=== PATIENT | male | born 1975 | race Caucasian/White ===

== ENCOUNTER 2016-12-21 10:41 | Emergency (ER) | payer MEDICAID, SELFPAY ==
[~2016-12-21] VITALS: Ht 193 cm; Wt 86.1 kg
[2016-12-21 12:19] VITALS: BP 127/69
[2016-12-21] MEDS ORDERED: OXAZ10CA3 PO (13:02)
== END 2016-12-21 13:32 | disposition home or self-care (01) ==
LOC: M ED 12:41
DX: F10.10 Alcohol abuse, uncomplicated (principal); F17.210 Nicotine dependence, cigarettes, uncomplicated

== ENCOUNTER 2018-04-06 12:52 | Emergency (ER) | payer MEDICAID, OTHER, SELFPAY ==
[2018-04-06] MEDS: NS 1,000 ML IV (13:30)
[2018-04-06 13:45] LABS: BASO # 0.1 10^3/uL (0.0-0.2); EOS # 0.2 10^3/uL (0.0-0.50); EOS % 2.7 % (0.0-3.0); HEMATOCRIT 36.5 % (42.0-52.0); HEMOGLOBIN 12.7 g/dl (13.5-17.5); LYMPH # 1.9 10^3/uL (1.5-4.5); LYMPH % 21.2 % (24.0-44.0); MEAN CORPUSCULAR HEMOGLOBIN 34.7 pg (27.0-33.0); MEAN CORPUSCULAR HGB CONC 34.8 g/dl (32.0-36.5); MEAN CORPUSCULAR VOLUME 99.7 fl (80.0-96.0); MONO # 0.9 10^3/uL (0.0-0.8); NEUTROPHILS # 5.7 10^3/uL (1.8-7.7); NEUTROPHILS % 64.1 % (36.0-66.0); PLATELET COUNT, AUTOMATED 272 10^3/uL (150-450); RED BLOOD COUNT 3.66 10^6/uL (4.30-6.10); RED CELL DISTRIBUTION WIDTH 12.4 % (11.5-14.5); WHITE BLOOD COUNT 8.9 10^3/uL (4.0-10.0)
[2018-04-06 14:05] LABS: ANION GAP 5 MEQ/L (8-16); BLOOD UREA NITROGEN 8 MG/DL (7-18); C REACTIVE PROTEIN QUANTITATIV 2.16 MG/DL (0.00-0.30); CALCIUM LEVEL 8.9 MG/DL (8.5-10.1); CARBON DIOXIDE LEVEL 31 MEQ/L (21-32); CHLORIDE LEVEL 103 MEQ/L (98-107); CREATININE FOR GFR 0.64 MG/DL (0.70-1.30); GLOMERULAR FILTRATION RATE > 60.0 (>60); GLUCOSE, FASTING 131 MG/DL (70-100); POTASSIUM SERUM 3.5 MEQ/L (3.5-5.1); SODIUM LEVEL 139 MEQ/L (136-145)
[2018-04-06 14:08] LABS: ERYTHROCYTE SEDIMENTATION RATE 44 mm/hr (0-15)
== END 2018-04-06 15:28 | disposition home or self-care (01) ==
LOC: M ED 12:52
DX: S22.31XA Fracture of one rib, right side, initial encounter for closed fracture (principal); L03.115 Cellulitis of right lower limb; S80.11XA Contusion of right lower leg, initial encounter; M71.21 Synovial cyst of popliteal space [Baker], right knee; Y04.8XXA Assault by other bodily force, initial encounter; Y92.149 Unspecified place in prison as the place of occurrence of the external cause; Y93.9 Activity, unspecified; Y99.9 Unspecified external cause status; Z79.899 Other long term (current) drug therapy
CPT/HCPCS: 71101

== ENCOUNTER 2018-04-08 10:00 | Emergency (ER) | payer MEDICAID, SELFPAY | END 2018-04-08 12:03 | disposition home or self-care (01) | LOC: M ED 10:00 | DX: L03.115 Cellulitis of right lower limb (principal); F10.10 Alcohol abuse, uncomplicated; F17.210 Nicotine dependence, cigarettes, uncomplicated | CPT/HCPCS: 73590 ==

== ENCOUNTER 2018-04-09 11:27 | Inpatient (IN) | payer MEDICAID, OTHER, SELFPAY ==
[2018-04-09] MEDS: THIAMINE 100 MG TAB PO (09:00)
[2018-04-09] MEDS: NS 1,000 ML IV (12:43)
[2018-04-09 12:46] LABS: BASO # 0.1 10^3/uL (0.0-0.2); BASO % 1.2 % (0.0-1.0); EOS # 0.5 10^3/uL (0.0-0.50); EOS % 4.4 % (0.0-3.0); HEMATOCRIT 36.8 % (42.0-52.0); HEMOGLOBIN 12.6 g/dl (13.5-17.5); IMMATURE GRANULOCYTE % 3.1 % (0-3.0); LYMPH # 2.2 10^3/uL (1.5-4.5); LYMPH % 19.4 % (24.0-44.0); MEAN CORPUSCULAR HEMOGLOBIN 34.4 pg (27.0-33.0); MEAN CORPUSCULAR HGB CONC 34.2 g/dl (32.0-36.5); MEAN CORPUSCULAR VOLUME 100.5 fl (80.0-96.0); MONO # 1.3 10^3/uL (0.0-0.8); MONO % 11.7 % (0.0-5.0); NEUTROPHILS # 6.8 10^3/uL (1.8-7.7); NEUTROPHILS % 60.2 % (36.0-66.0); PLATELET COUNT, AUTOMATED 319 10^3/uL (150-450); RED BLOOD COUNT 3.66 10^6/uL (4.30-6.10); RED CELL DISTRIBUTION WIDTH 13.1 % (11.5-14.5); WHITE BLOOD COUNT 11.2 10^3/uL (4.0-10.0)
[2018-04-09 12:59] LABS: KETONE, URINE AUTO RFX TRACE mg/dL (NEGATIVE); LEUKOCYTE ESTERASE UR AUTO RFX NEGATIVE (NEGATIVE); MUCUS, URINE RFX SMALL (NEGATIVE); NITRITE, URINE AUTO RFX NEGATIVE (NEGATIVE); RBC, URINE AUTO RFX 2 /HPF (0-3); SPECIFIC GRAVITY UR AUTO RFX 1.017 (1.002-1.035); SQUAM EPITHELIAL CELL UR AURFX 0 /HPF (0-6); WBC, URINE AUTO RFX 1 /HPF (0-3)
[2018-04-09 13:00] LABS: INR 1.01; PARTIAL THROMBOPLASTIN TIME 31.4 SECONDS (25.4-37.6); PROTHROMBIN TIME 13.4 SECONDS (12.1-14.4)
[2018-04-09 13:15] LABS: ERYTHROCYTE SEDIMENTATION RATE 41 mm/hr (0-15)
[2018-04-09 13:24] LABS: ALBUMIN/GLOBULIN RATIO 0.83 (1.00-1.93); ALKALINE PHOSPHATASE 101 U/L (45-117); ALT/SGPT 159 U/L (12-78); ANION GAP 4 MEQ/L (8-16); AST/SGOT 109 U/L (7-37); BILIRUBIN,DIRECT 0.3 MG/DL (0.0-0.2); BILIRUBIN,TOTAL 0.8 MG/DL (0.2-1.0); BLOOD UREA NITROGEN 4 MG/DL (7-18); C REACTIVE PROTEIN QUANTITATIV 1.16 MG/DL (0.00-0.30); CALCIUM LEVEL 7.8 MG/DL (8.5-10.1); CARBON DIOXIDE LEVEL 32 MEQ/L (21-32); CHLORIDE LEVEL 105 MEQ/L (98-107); CREATININE FOR GFR 0.67 MG/DL (0.70-1.30); GLOMERULAR FILTRATION RATE > 60.0 (>60); GLUCOSE, FASTING 94 MG/DL (70-100); POTASSIUM SERUM 4.5 MEQ/L (3.5-5.1); SODIUM LEVEL 141 MEQ/L (136-145); TOTAL PROTEIN 6.6 GM/DL (6.4-8.2)
[2018-04-09 13:27] LABS: LACTIC ACID SEPSIS PROTOCOL 2.5 MMOL/L (0.4-2.0)
[2018-04-09] MEDS ORDERED: ISOVUE-370 76% 100ML VIAL (Q9967) As Ordered (13:28)
[2018-04-09] MEDS: CEFTAROLINE FOSAMIL 600 MG in D5W MINI-BAG PLUS 50 ML IV (14:51)
[2018-04-09] MEDS ORDERED: LORazepam 2 MG/ML VIAL (J2060) IV (15:45)
[2018-04-09] MEDS ORDERED: BISACODYL 5 MG TAB PO (15:45)
[2018-04-09] MEDS ORDERED: IBUPROFEN 400 MG TAB PO (15:45)
[2018-04-09] MEDS: ENOXAPARIN 40 MG/0.4 ML SYRINGE (J1650) SC (17:02)
[2018-04-09] MEDS: MULTIVITAMINS/MINERALS THERAP 1 TAB PO (17:02)
[2018-04-09] MEDS ORDERED: PILL CRUSHER/CUTTER 1 EACH XX (17:30)
[2018-04-09] MEDS: FOLIC ACID 1 MG TAB PO (19:46)
[2018-04-10] MEDS: CEFTAROLINE FOSAMIL 600 MG in D5W MINI-BAG PLUS 50 ML IV ×2 (02:56→16:05)
[2018-04-10 06:14] LABS: HEMATOCRIT 36.1 % (42.0-52.0); HEMOGLOBIN 12.2 g/dl (13.5-17.5); MEAN CORPUSCULAR HEMOGLOBIN 34.3 pg (27.0-33.0); MEAN CORPUSCULAR HGB CONC 33.8 g/dl (32.0-36.5); MEAN CORPUSCULAR VOLUME 101.4 fl (80.0-96.0); PLATELET COUNT, AUTOMATED 296 10^3/uL (150-450); RED BLOOD COUNT 3.56 10^6/uL (4.30-6.10); RED CELL DISTRIBUTION WIDTH 13.1 % (11.5-14.5); WHITE BLOOD COUNT 10.5 10^3/uL (4.0-10.0)
[2018-04-10 06:44] LABS: ALBUMIN 2.6 GM/DL (3.2-5.2); ALBUMIN/GLOBULIN RATIO 0.72 (1.00-1.93); ALKALINE PHOSPHATASE 92 U/L (45-117); ALT/SGPT 122 U/L (12-78); ANION GAP 4 MEQ/L (8-16); AST/SGOT 65 U/L (7-37); BILIRUBIN,TOTAL 0.5 MG/DL (0.2-1.0); BLOOD UREA NITROGEN 6 MG/DL (7-18); CALCIUM LEVEL 8.2 MG/DL (8.5-10.1); CARBON DIOXIDE LEVEL 31 MEQ/L (21-32); CHLORIDE LEVEL 108 MEQ/L (98-107); CREATININE FOR GFR 0.66 MG/DL (0.70-1.30); GLOMERULAR FILTRATION RATE > 60.0 (>60); GLUCOSE, FASTING 85 MG/DL (70-100); SODIUM LEVEL 143 MEQ/L (136-145); TOTAL PROTEIN 6.2 GM/DL (6.4-8.2)
[2018-04-10] MEDS: THIAMINE 100 MG TAB PO (09:21)
[2018-04-10] MEDS: MULTIVITAMINS/MINERALS THERAP 1 TAB PO (09:21)
[2018-04-10] MEDS: INFLUENZA QUADRIVALENT PF VACCINE 0.5ML SYRINGE (90686) IM (09:21)
[2018-04-10] MEDS: FOLIC ACID 1 MG TAB PO (09:21)
[2018-04-10] MEDS: ENOXAPARIN 40 MG/0.4 ML SYRINGE (J1650) SC (09:22)
[2018-04-10] MEDS: ACETAMINOPHEN 500 MG TAB PO (21:42)
[2018-04-11] MEDS: CEFTAROLINE FOSAMIL 600 MG in D5W MINI-BAG PLUS 50 ML IV ×2 (02:13→16:22)
[2018-04-11 06:02] LABS: HEMATOCRIT 35.9 % (42.0-52.0); MEAN CORPUSCULAR HEMOGLOBIN 33.3 pg (27.0-33.0); MEAN CORPUSCULAR HGB CONC 33.4 g/dl (32.0-36.5); MEAN CORPUSCULAR VOLUME 99.7 fl (80.0-96.0); PLATELET COUNT, AUTOMATED 268 10^3/uL (150-450); RED CELL DISTRIBUTION WIDTH 12.8 % (11.5-14.5); WHITE BLOOD COUNT 10.1 10^3/uL (4.0-10.0)
[2018-04-11 06:31] LABS: ALBUMIN 2.6 GM/DL (3.2-5.2); ALKALINE PHOSPHATASE 100 U/L (45-117); ALT/SGPT 102 U/L (12-78); ANION GAP 4 MEQ/L (8-16); AST/SGOT 61 U/L (7-37); BILIRUBIN,TOTAL 0.5 MG/DL (0.2-1.0); BLOOD UREA NITROGEN 5 MG/DL (7-18); C REACTIVE PROTEIN QUANTITATIV 0.88 MG/DL (0.00-0.30); CALCIUM LEVEL 8.1 MG/DL (8.5-10.1); CARBON DIOXIDE LEVEL 29 MEQ/L (21-32); CHLORIDE LEVEL 108 MEQ/L (98-107); CREATININE FOR GFR 0.62 MG/DL (0.70-1.30); GLOMERULAR FILTRATION RATE > 60.0 (>60); GLUCOSE, FASTING 85 MG/DL (70-100); POTASSIUM SERUM 3.7 MEQ/L (3.5-5.1); SODIUM LEVEL 141 MEQ/L (136-145); TOTAL PROTEIN 6.3 GM/DL (6.4-8.2)
[2018-04-11] MEDS: FOLIC ACID 1 MG TAB PO (10:09)
[2018-04-11] MEDS: MULTIVITAMINS/MINERALS THERAP 1 TAB PO (10:09)
[2018-04-11] MEDS: THIAMINE 100 MG TAB PO (10:09)
[2018-04-11] MEDS: ENOXAPARIN 40 MG/0.4 ML SYRINGE (J1650) SC (10:10)
[2018-04-11] MEDS: ACETAMINOPHEN 500 MG TAB PO (20:32)
[2018-04-12] MEDS: CEFTAROLINE FOSAMIL 600 MG in D5W MINI-BAG PLUS 50 ML IV (02:35)
[2018-04-12 06:00] LABS: HEMATOCRIT 36.6 % (42.0-52.0); HEMOGLOBIN 12.6 g/dl (13.5-17.5); MEAN CORPUSCULAR HEMOGLOBIN 33.9 pg (27.0-33.0); MEAN CORPUSCULAR HGB CONC 34.4 g/dl (32.0-36.5); MEAN CORPUSCULAR VOLUME 98.4 fl (80.0-96.0); PLATELET COUNT, AUTOMATED 253 10^3/uL (150-450); RED BLOOD COUNT 3.72 10^6/uL (4.30-6.10); WHITE BLOOD COUNT 9.5 10^3/uL (4.0-10.0)
[2018-04-12 06:29] LABS: ALBUMIN 2.7 GM/DL (3.2-5.2); ALBUMIN/GLOBULIN RATIO 0.68 (1.00-1.93); ALKALINE PHOSPHATASE 114 U/L (45-117); ALT/SGPT 104 U/L (12-78); ANION GAP 6 MEQ/L (8-16); AST/SGOT 74 U/L (7-37); BILIRUBIN,TOTAL 0.4 MG/DL (0.2-1.0); BLOOD UREA NITROGEN 5 MG/DL (7-18); C REACTIVE PROTEIN QUANTITATIV 0.85 MG/DL (0.00-0.30); CALCIUM LEVEL 8.1 MG/DL (8.5-10.1); CARBON DIOXIDE LEVEL 31 MEQ/L (21-32); CHLORIDE LEVEL 106 MEQ/L (98-107); CREATININE FOR GFR 0.65 MG/DL (0.70-1.30); GLOMERULAR FILTRATION RATE > 60.0 (>60); GLUCOSE, FASTING 109 MG/DL (70-100); POTASSIUM SERUM 3.6 MEQ/L (3.5-5.1); SODIUM LEVEL 143 MEQ/L (136-145); TOTAL PROTEIN 6.7 GM/DL (6.4-8.2)
[2018-04-12] MEDS: MULTIVITAMINS/MINERALS THERAP 1 TAB PO (10:04)
[2018-04-12] MEDS: ENOXAPARIN 40 MG/0.4 ML SYRINGE (J1650) SC (10:04)
[2018-04-12] MEDS: FOLIC ACID 1 MG TAB PO (10:05)
[2018-04-12] MEDS: THIAMINE 100 MG TAB PO (10:05)
== END 2018-04-12 11:29 | disposition home or self-care (01) | DRG 383 ==
LOC: M ED 11:27 → M ED INP 14:33 → M MSPAV 16:40
DX: L03.115 Cellulitis of right lower limb (principal); S22.41XA Multiple fractures of ribs, right side, initial encounter for closed fracture; M17.11 Unilateral primary osteoarthritis, right knee; F10.10 Alcohol abuse, uncomplicated; Z79.899 Other long term (current) drug therapy; Z87.891 Personal history of nicotine dependence; Y04.2XXA Assault by strike against or bumped into by another person, initial encounter; Y92.149 Unspecified place in prison as the place of occurrence of the external cause

== ENCOUNTER → 2018-08-04 | Outpatient (REF) | payer MEDICAID, OTHER ==
[~2018-08-04] MED LIST: CHLO25CA PO; CLEO300C2 PO; DOXY-350 PO; FOLI1TAB11 PO; IBUP40TA PO; NORCOTAB PO; OXAZ10CA3 PO; THIA100TA PO; VITMTA PO
[2018-08-04 13:17] LABS: BASO # 0.1 10^3/uL (0.0-0.2); EOS # 0.5 10^3/uL (0.0-0.50); EOS % 4.4 % (0.0-3.0); HEMATOCRIT 52.2 % (42.0-52.0); HEMOGLOBIN 18.1 g/dl (13.5-17.5); LYMPH # 3.3 10^3/uL (1.5-4.5); LYMPH % 31.3 % (24.0-44.0); MEAN CORPUSCULAR HEMOGLOBIN 32.5 pg (27.0-33.0); MEAN CORPUSCULAR HGB CONC 34.7 g/dl (32.0-36.5); MEAN CORPUSCULAR VOLUME 93.7 fl (80.0-96.0); MONO # 0.8 10^3/uL (0.0-0.8); MONO % 7.9 % (0.0-5.0); NEUTROPHILS # 5.7 10^3/uL (1.8-7.7); PLATELET COUNT, AUTOMATED 205 10^3/uL (150-450); RED BLOOD COUNT 5.57 10^6/uL (4.30-6.10); WHITE BLOOD COUNT 10.4 10^3/uL (4.0-10.0)
[2018-08-04 13:29] LABS: ALBUMIN 4.1 GM/DL (3.2-5.2); ALT/SGPT 27 U/L (12-78); BILIRUBIN,TOTAL 0.3 MG/DL (0.2-1.0); BLOOD UREA NITROGEN 11 MG/DL (7-18); CARBON DIOXIDE LEVEL 30 MEQ/L (21-32); CHLORIDE LEVEL 104 MEQ/L (98-107); CHOLESTEROL LEVEL 207 MG/DL (<200); CHOLESTEROL RISK RATIO 5.594 (<5); CREATININE FOR GFR 0.75 MG/DL (0.70-1.30); GLOMERULAR FILTRATION RATE > 60.0 (>60); GLUCOSE, FASTING 80 MG/DL (70-100); HDL CHOLESTEROL 37 MG/DL (>40); LDL CHOLESTEROL 151 MG/DL (<100); NON-HDL-C 170 MG/DL; POTASSIUM SERUM 4.7 MEQ/L (3.5-5.1); SODIUM LEVEL 138 MEQ/L (136-145); TOTAL PROTEIN 7.7 GM/DL (6.4-8.2); TRIGLYCERIDES LEVEL 94 MG/DL (<150)
== END ==
LOC: M SFHCADAM 09:08
PROVIDERS: ATTEND Family Medicine
DX: Z00.00 Encounter for general adult medical examination without abnormal findings (principal)

== ENCOUNTER → 2020-07-04 | Outpatient (REF) | payer OTHER, MEDICAID ==
[~2020-07-04] MED LIST changes: +HYDR-3715 PO; -NORCOTAB PO
== END ==
LOC: M SFHCADAM 16:45
PROVIDERS: ATTEND Family Medicine
DX: M70.22 Olecranon bursitis, left elbow (principal)

== ENCOUNTER → 2020-10-12 | Outpatient (CLI) | payer OTHER, MEDICAID ==
[~2020-10-12] MED LIST changes: +IBUP1TAB5 PO; -IBUP40TA PO
--- NOTE | 2020-10-12 12:16 | REP ---
INDICATION: PAIN. Bilateral knee series. Pain. COMPARISON: Comparison right tib fib radiographs April 08, 2018.. TECHNIQUE: Twelve views. Bilateral knee series. FINDINGS: Overall normal mineralization is seen. There is bilateral osteoarthritis most prominently affecting the medial and patellofemoral compartments of each knee. There is joint space narrowing in the medial compartment of the right and to a lesser extent left knee. On the right this is radiographically unchanged from the 2018 study. There are bilateral normal fabella. There is a calcification at the posterior and medial joint line on the right which may reflect a small loose body. This measures 4 mm. There is dystrophic soft tissue calcification in the superficial posterior popliteal soft tissues on the on the left. This is not felt to be intra-articular. No acute erosive changes seen. IMPRESSION: Moderate bilateral patellofemoral and medial compartment osteoarthritis with medial compartment joint space narrowing. Suspected 4 mm loose body posteromedially on the right. <Electronically signed by Timothy Tolbert > 10/12/20 [id number]
--- NOTE | 2020-10-12 14:08 | REP ---
INDICATION: PAIN. COMPARISON: None. TECHNIQUE: Four views of the left shoulder are provided. Tangential scapular and axillary Y-views are included. FINDINGS: Four views of the left shoulder demonstrate normal alignment of the glenohumeral and acromioclavicular joints. There is AC joint hypertrophy consistent with osteoarthritis. Question narrowing of the subacromial space may imply degeneration of the rotator cuff. No erosive changes seen. No fracture is seen. IMPRESSION: Mild AC joint hypertrophy consistent with early osteoarthritis. Question narrowing subacromial space may correlate with degeneration of the rotator cuff. No acute bony abnormality. <Electronically signed by Timothy Tolbert > 10/12/20 [id number]
== END ==
LOC: M SOG 10:49
PROVIDERS: ATTEND Orthopaedic Surgery Sports Medicine
DX: M19.012 Primary osteoarthritis, left shoulder (principal); M17.0 Bilateral primary osteoarthritis of knee; M75.42 Impingement syndrome of left shoulder

== ENCOUNTER → 2020-11-02 | Outpatient (CLI) | payer OTHER ==
--- NOTE | 2020-11-02 13:16 | REP ---
INDICATION: IMPINGEMENT SYNDROME OF LT SHOULDER. COMPARISON: Radiographs 10/12/2020. TECHNIQUE: Coronal oblique T1, T2 fat sat, sagittal oblique T2 fat sat, axial T2 fat sat, gradient echo. The study is significantly limited due to patient motion. FINDINGS: Rotator cuff: There is mild subscapularis, supraspinatus and infraspinatus tendinopathy/tendinitis with no definite tear. Acromioclavicular joint: There are moderate hypertrophic degenerative changes of the acromioclavicular joint. Acromion: Type 2 Biceps Tendon: Biceps tendon is displaced anteromedially out of the bicipital groove with moderate surrounding fluid. Proximal biceps tendon is not well visualized and I cannot exclude a tear. Hill Sach's deformity: None. Deltoid muscle: No abnormal signal. Labrum: A posterior labral tear is suspected. Cartilage: No defects. Bone marrow: There is no bone marrow edema identified. There is mild subcortical cystic change in the superolateral humeral head. Joint fluid: There is a small joint effusion. IMPRESSION: Significantly limited exam due to patient motion. Tendinopathy/tendinitis of subscapularis, supraspinatus and infraspinatus tendons with no focal tear identified. Moderate hypertrophic degenerative changes acromioclavicular joint with a type 2 acromion. Biceps tendon is displaced anteromedially out of the bicipital groove with moderate surrounding fluid. Proximal biceps tendon tear cannot be excluded. Posterior labral tear is suspected. <Electronically signed by Morris Peraza > 11/02/20 [id number]
== END ==
LOC: M PLARAD 10:31
PROVIDERS: ATTEND Orthopaedic Surgery Sports Medicine
DX: M75.42 Impingement syndrome of left shoulder (principal); M25.412 Effusion, left shoulder

== ENCOUNTER → 2020-12-27 | Outpatient (CLI) | payer OTHER, MEDICAID ==
--- NOTE | 2020-12-27 12:37 | REP ---
INDICATION: OSTEOARTHRITIS OF KNEE. COMPARISON: None. TECHNIQUE: Standing bilateral AP view of the knees FINDINGS: There is bilateral medial compartmental narrowing with subchondral sclerosis and marginal osteophytosis. There is no fracture or destructive osseous lesion. IMPRESSION: Chronic changes as described above. <Electronically signed by Serge Wood > 12/27/20 [id number]
== END ==
LOC: M SOG 11:21
PROVIDERS: ATTEND Orthopaedic Surgery Adult Reconstructive Orthopaedic Surgery
DX: M17.9 Osteoarthritis of knee, unspecified (principal); M25.761 Osteophyte, right knee; M25.762 Osteophyte, left knee

== ENCOUNTER 2021-01-18 07:06 | Outpatient (RCR) | payer OTHER | END 2021-01-26 | LOC: M PT 07:06 | PROVIDERS: ATTEND Orthopaedic Surgery Adult Reconstructive Orthopaedic Surgery | DX: M17.9 Osteoarthritis of knee, unspecified (principal) ==

== ENCOUNTER 2021-01-22 19:01 | Emergency (ER) | payer OTHER, MEDICAID ==
[~2021-01-22] VITALS: Ht 193 cm; Wt 102.6 kg
[2021-01-22 19:03] VITALS: BP 135/85
== END 2021-01-22 19:10 | disposition left against medical advice (07) ==
LOC: M ED 19:01
DX: Z53.21 Procedure and treatment not carried out due to patient leaving prior to being seen by health care provider (principal)

== ENCOUNTER 2021-01-31 21:37 | Emergency (ER) | payer OTHER, MEDICAID ==
[~2021-01-31] VITALS: Ht 193 cm; Wt 99.7 kg
[2021-01-31] MEDS ORDERED: HYDR-3363 (21:47)
[2021-01-31] MEDS ORDERED: NAPR-885 PO (22:28)
[2021-02-01] MEDS ORDERED: ANUC25SU PR (00:05)
[2021-02-01 00:24] VITALS: BP 142/88
== END 2021-02-01 00:26 | disposition home or self-care (01) ==
LOC: M ED 21:37
DX: K60.2 Anal fissure, unspecified (principal); K64.8 Other hemorrhoids; F17.210 Nicotine dependence, cigarettes, uncomplicated

== ENCOUNTER → 2021-02-12 | Outpatient (CLI) | payer OTHER ==
[~2021-02-12] MED LIST changes: +ANUC25SU PR; +HYDR-3363; +NAPR-885 PO
--- NOTE | 2021-02-21 08:10 | REP ---
INDICATION: OA OF RT KNEE. COMPARISON: None. TECHNIQUE: Axial noncontrast images through the hip, knee, and ankle with coronal and sagittal reformations. FINDINGS: Images of the hip demonstrate mild increased sclerosis along the acetabular roof with early spurring and very minimal joint space narrowing. No effusion. No further osteoarthritic degenerative changes are appreciated. Surrounding musculature appears intact and essentially age-appropriate. No obvious acute or healed injury identified. Images of the knee demonstrate moderate tricompartmental osteoarthritic changes. Findings include periarticular and subchondral sclerosis primarily involving the medial joint space with associated early osteophyte formation and joint space narrowing to roughly 3.9 mm. Periarticular sclerosis with subtle spurring also identified at the patellofemoral. Joint space a moderate to significant joint effusion is identified. Complex Cesar's cyst with septation in the posterior knee measures roughly 2.9 x 2.2 cm diameter and 4.5 cm in length no obvious acute or healed fracture identified. Images of the ankle demonstrate moderate generalized age-related arthritic changes findings include subtle periarticular spurring and areas of subchondral sclerosis. There is a small chronic fractured posterior talar beak. No obvious acute injury. No effusion. IMPRESSION: 1. Age-related changes at the right hip. 2. Significant joint effusion at the knee consistent with underlying soft tissue injuries as detailed in recent MRI dated 12/13/2020. Correlation and follow-up is recommended. 3. Moderate age-related degenerative changes at the ankle. <Electronically signed by Bruno Perdomo > 02/21/21 [id number]
== END ==
LOC: M RAD 10:22
PROVIDERS: ATTEND Orthopaedic Surgery Adult Reconstructive Orthopaedic Surgery
DX: M17.11 Unilateral primary osteoarthritis, right knee (principal)

== ENCOUNTER → 2021-02-15 | Outpatient (CLI) | payer OTHER, MEDICAID ==
--- NOTE | 2021-02-15 14:20 | REP ---
INDICATION: PRE OP COMPARISON: 04/06/2018. TECHNIQUE: PA/Lateral FINDINGS: Lungs: Clear, no infiltrate. Heart: Normal in size. Mediastinum: Mediastinal silhouette unremarkable. Pleural angles: Unremarkable.. Bones and soft tissues: Unremarkable. IMPRESSION: No acute pulmonary disease. <Electronically signed by Morris Peraza > 02/15/21 [id number]
== END ==
LOC: M ADAMS 13:53
PROVIDERS: ATTEND Family Medicine
DX: Z01.818 Encounter for other preprocedural examination (principal); Z79.899 Other long term (current) drug therapy

== ENCOUNTER → 2021-02-15 | Outpatient (REF) | payer OTHER, MEDICAID ==
[2021-02-15 17:24] LABS: BASO # 0.2 10^3/uL (0.0-0.2); BASO % 1.5 % (0.0-1.0); EOS # 0.3 10^3/uL (0.0-0.5); EOS % 3.1 % (0.0-3.0); HEMATOCRIT 40.8 % (42.0-52.0); HEMOGLOBIN 13.7 g/dl (13.5-17.5); LYMPH # 2.8 10^3/uL (1.5-5.0); LYMPH % 28.3 % (24.0-44.0); MEAN CORPUSCULAR HEMOGLOBIN 33.1 pg (27.0-33.0); MEAN CORPUSCULAR HGB CONC 33.6 g/dl (32.0-36.5); MEAN CORPUSCULAR VOLUME 98.6 fl (80.0-96.0); MONO # 1.2 10^3/uL (0.0-0.8); MONO % 11.7 % (2.0-8.0); NEUTROPHILS # 5.5 10^3/uL (1.5-8.5); NEUTROPHILS % 55.1 % (36.0-66.0); PLATELET COUNT, AUTOMATED 237 10^3/uL (150-450); RED BLOOD COUNT 4.14 10^6/uL (4.30-6.10); WHITE BLOOD COUNT 9.9 10^3/uL (4.0-10.0)
[2021-02-15 17:50] LABS: ALBUMIN 3.5 GM/DL (3.2-5.2); ALT/SGPT 53 U/L (12-78); BILIRUBIN,TOTAL 0.9 MG/DL (0.2-1.0); BLOOD UREA NITROGEN 2 MG/DL (7-18); CARBON DIOXIDE LEVEL 30 MEQ/L (21-32); CHLORIDE LEVEL 102 MEQ/L (98-107); CREATININE FOR GFR 0.68 MG/DL (0.70-1.30); GLOMERULAR FILTRATION RATE > 60.0 (>60); GLUCOSE, FASTING 72 MG/DL (70-100); SODIUM LEVEL 137 MEQ/L (136-145); TOTAL PROTEIN 7.5 GM/DL (6.4-8.2)
== END ==
LOC: M SFHCADAM 13:50
PROVIDERS: ATTEND Family Medicine
DX: Z01.818 Encounter for other preprocedural examination (principal); F41.9 Anxiety disorder, unspecified

== ENCOUNTER → 2021-02-21 | Outpatient (CLI) | payer OTHER | LOC: M LABSMTC 09:33 | PROVIDERS: ATTEND Anesthesiology | DX: Z01.812 Encounter for preprocedural laboratory examination (principal); Z11.52 Encounter for screening for COVID-19 ==

== ENCOUNTER 2021-02-26 05:58 | Observation (INO) | payer OTHER ==
[2021-02-26] VITALS (10 sets, daily range): BP systolic 130–153; BP diastolic 86–98
[~2021-02-26] VITALS: Ht 191.8 cm; Wt 98.3 kg
[2021-02-26] MEDS ORDERED: HYDR-3363 PO (06:26)
[2021-02-26] MEDS ORDERED: dexameTHASONE 4 MG/ML 1ML VIAL (J1100 PER 1MG) IV ONE (07:00)
[2021-02-26] MEDS ORDERED: ceFAZolin SOD 2 GM in IV 1 EA IV ONE (07:00)
[2021-02-26] MEDS ORDERED: PREGABALIN 25 MG CAP (LYRICA) PO ONE (07:00)
[2021-02-26] MEDS ORDERED: NS 1,000 ML IV ONE (07:00)
[2021-02-26] MEDS ORDERED: NAPROXEN 250 MG TAB PO ONE (07:00)
[2021-02-26] MEDS ORDERED: ACETAMINOPHEN 500 MG TAB PO ONE (07:00)
[2021-02-26] MEDS ORDERED: ROPIVA 125MG/EPINEPH 0.25MG/CLONID 40MCG/KETOR 15MG IN NS 50ML SYRINGE PA ONE (07:00)
[2021-02-26] MEDS ORDERED: propofoL 200 MG/20 ML VIAL As Ordered ONE ×5 (07:10→10:31)
[2021-02-26] MEDS ORDERED: ONDANSETRON 4MG/2ML VIAL As Ordered ONE (07:11)
[2021-02-26] MEDS ORDERED: LIDOCAINE 2% 100MG/5ML SDV (FOR ANES.) As Ordered ONE (07:11)
[2021-02-26] MEDS ORDERED: dexameTHASONE 4 MG/ML 1ML VIAL (J1100 PER 1MG) As Ordered ONE ×2 (07:11→08:14)
[2021-02-26] MEDS ORDERED: propofoL 500 MG/50 ML VIAL As Ordered ONE (07:11)
[2021-02-26] MEDS ORDERED: TRANEXAMIC ACID 100 MG/ML 10ML VIAL As Ordered ONE (07:12)
[2021-02-26] MEDS ORDERED: fentaNYL 100 MCG/2 ML INJECTION (J3010) As Ordered ONE (07:32)
[2021-02-26] MEDS ORDERED: MIDAZOLAM INJ 2MG/2ML VIAL (J2250 PER 1MG) As Ordered ONE ×2 (07:32→07:39)
[2021-02-26] MEDS ORDERED: PHENYLephrine 500MCG 5ML (100MCG/ML) SYRINGE As Ordered ONE ×2 (07:51→08:21)
[2021-02-26] MEDS ORDERED: LR 1,000 ML IV SCH (11:20)
[2021-02-26] MEDS ORDERED: oxyCODONE 5MG TAB PO PRN ×2 (11:20→12:50)
[2021-02-26] MEDS ORDERED: ONDANSETRON 4MG/2ML VIAL IV PRN ×2 (11:20→12:45)
[2021-02-26] MEDS ORDERED: fentaNYL 100 MCG/2 ML INJECTION (J3010) IV PRN (11:20)
[2021-02-26] MEDS: ACETAMINOPHEN TAB 650MG DOSE (2X325MG) PO SCH ×2 (12:00→17:39)
[2021-02-26] MEDS ORDERED: LORazepam 2 MG TAB PO PRN (12:15)
[2021-02-26] MEDS ORDERED: SENNA 8.6 MG TAB (SENOKOT) PO PRN (12:45)
[2021-02-26] MEDS ORDERED: traMADol 50 MG TAB PO PRN (12:45)
[2021-02-26] MEDS: LR 1,000 ML IV SCH ×2 (12:50→22:50)
[2021-02-26] MEDS ORDERED: HOME MED LIST COMPLETE! XX SCH (13:10)
[2021-02-26] MEDS: ASCORBIC ACID 500 MG TAB PO SCH (13:54)
[2021-02-26] MEDS: THIAMINE 100 MG TAB PO SCH ×2 (13:54→21:06)
[2021-02-26] MEDS: DOCUSATE SODIUM 100MG CAPSULE PO SCH ×2 (13:54→21:06)
[2021-02-26] MEDS: MULTIVITAMINS/MINERALS THERAP 1 TAB PO SCH (13:54)
[2021-02-26] MEDS: FERROUS SULFATE 325MG TAB PO SCH (13:54)
[2021-02-26] MEDS: FOLIC ACID 1 MG TAB PO SCH (13:54)
[2021-02-26] MEDS: oxyCODONE 5MG TAB PO PRN (13:55)
[2021-02-26] MEDS: ceFAZolin SOD 2 GM in IV 1 EA IV SCH (16:25)
[2021-02-26] MEDS: NAPROXEN 250 MG TAB PO SCH (21:06)
[2021-02-26] MEDS: ASPIRIN 81MG ENTERIC TABLET PO SCH (21:06)
[2021-02-27] MEDS: ceFAZolin SOD 2 GM in IV 1 EA IV SCH (00:37)
[2021-02-27] MEDS: ACETAMINOPHEN TAB 650MG DOSE (2X325MG) PO SCH ×3 (00:37→11:23)
[2021-02-27] MEDS: oxyCODONE 5MG TAB PO PRN ×3 (00:45→13:06)
[2021-02-27 00:52] VITALS: BP 120/91
[2021-02-27 06:37] LABS: HEMATOCRIT 36.9 % (42.0-52.0); HEMOGLOBIN 12.5 g/dl (13.5-17.5); MEAN CORPUSCULAR HEMOGLOBIN 33.5 pg (27.0-33.0); MEAN CORPUSCULAR HGB CONC 33.9 g/dl (32.0-36.5); MEAN CORPUSCULAR VOLUME 98.9 fl (80.0-96.0); PLATELET COUNT, AUTOMATED 156 10^3/uL (150-450); RED BLOOD COUNT 3.73 10^6/uL (4.30-6.10); WHITE BLOOD COUNT 14.7 10^3/uL (4.0-10.0)
[2021-02-27 06:55] LABS: ALBUMIN 2.9 GM/DL (3.2-5.2); ALT/SGPT 33 U/L (12-78); BILIRUBIN,TOTAL 0.8 MG/DL (0.2-1.0); BLOOD UREA NITROGEN 7 MG/DL (7-18); CALCIUM LEVEL 8.4 MG/DL (8.5-10.1); CARBON DIOXIDE LEVEL 29 MEQ/L (21-32); CHLORIDE LEVEL 105 MEQ/L (98-107); CREATININE FOR GFR 0.81 MG/DL (0.70-1.30); GLOMERULAR FILTRATION RATE > 60.0 (>60); GLUCOSE, FASTING 144 MG/DL (70-100); POTASSIUM SERUM 4.3 MEQ/L (3.5-5.1); SODIUM LEVEL 137 MEQ/L (136-145); TOTAL PROTEIN 6.5 GM/DL (6.4-8.2)
[2021-02-27 06:56] VITALS: BP 111/60
[2021-02-27 07:01] VITALS: BP 111/60
[2021-02-27] MEDS: LR 1,000 ML IV SCH (08:30)
[2021-02-27] MEDS: ASPIRIN 81MG ENTERIC TABLET PO SCH (08:31)
[2021-02-27] MEDS: NAPROXEN 250 MG TAB PO SCH (08:31)
[2021-02-27] MEDS: THIAMINE 100 MG TAB PO SCH (08:32)
[2021-02-27] MEDS: MULTIVITAMINS/MINERALS THERAP 1 TAB PO SCH (08:32)
[2021-02-27] MEDS: ASCORBIC ACID 500 MG TAB PO SCH (08:32)
[2021-02-27] MEDS: FOLIC ACID 1 MG TAB PO SCH (08:32)
[2021-02-27] MEDS: DOCUSATE SODIUM 100MG CAPSULE PO SCH (08:32)
[2021-02-27] MEDS: FERROUS SULFATE 325MG TAB PO SCH (08:32)
[2021-02-27] MEDS ORDERED: THIA100TA PO (09:09)
[2021-02-27] MEDS ORDERED: ASPI-551 PO (09:09)
[2021-02-27] MEDS ORDERED: FOLI1TAB11 PO (09:09)
[2021-02-27] MEDS ORDERED: VITMTA PO (09:09)
[2021-02-27] MEDS ORDERED: OXYC-517 PO (09:09)
[2021-02-27] MEDS ORDERED: LIDOCAINE W/EPINEPHRINE 1% 20ML VIAL SC ONE (11:30)
== END 2021-02-27 13:25 | disposition home health service (06) ==
LOC: M SDC 05:58 → M MS5PR 11:40 → M SDC 12:12 → M MS5PR 12:13
PROVIDERS: ADMIT Internal Medicine; ATTEND Orthopaedic Surgery Adult Reconstructive Orthopaedic Surgery
DX: M17.11 Unilateral primary osteoarthritis, right knee (principal); M70.41 Prepatellar bursitis, right knee; Z79.899 Other long term (current) drug therapy; Z79.82 Long term (current) use of aspirin; F10.10 Alcohol abuse, uncomplicated; F17.210 Nicotine dependence, cigarettes, uncomplicated
CPT/HCPCS: 27340; 27447; 36415; 73560; 73590; 80053; 85027; 96365; 96366; 97110; 97116; 97161; 97165; 97530; C1776; J0690; J1100; J2250; J2370; J2405; J3010; S2900

== ENCOUNTER → 2021-03-01 | Outpatient (REF) | payer OTHER ==
[~2021-03-01] MED LIST changes: +ASPI-551 PO; +HYDR-3363 PO; +OXYC-517 PO
[2021-03-01 12:51] LABS: BASO # 0.1 10^3/uL (0.0-0.2); BASO % 0.8 % (0.0-1.0); EOS # 0.3 10^3/uL (0.0-0.5); EOS % 2.2 % (0.0-3.0); HEMATOCRIT 35.6 % (42.0-52.0); LYMPH # 3.6 10^3/uL (1.5-5.0); MEAN CORPUSCULAR HEMOGLOBIN 33.8 pg (27.0-33.0); MEAN CORPUSCULAR HGB CONC 33.7 g/dl (32.0-36.5); MEAN CORPUSCULAR VOLUME 100.3 fl (80.0-96.0); MONO # 1.8 10^3/uL (0.0-0.8); MONO % 11.4 % (2.0-8.0); NEUTROPHILS # 9.6 10^3/uL (1.5-8.5); NEUTROPHILS % 62.1 % (36.0-66.0); PLATELET COUNT, AUTOMATED 171 10^3/uL (150-450); RED BLOOD COUNT 3.55 10^6/uL (4.30-6.10)
[2021-03-01 13:33] LABS: WHITE BLOOD COUNT 15.5 10^3/uL (4.0-10.0)
== END ==
LOC: M SHH 12:20
PROVIDERS: ATTEND Orthopaedic Surgery Adult Reconstructive Orthopaedic Surgery
DX: Z96.651 Presence of right artificial knee joint (principal)

== ENCOUNTER → 2021-03-12 | Outpatient (CLI) | payer OTHER ==
--- NOTE | 2021-03-12 10:35 | REP ---
INDICATION: SURGICAL AFTERCARE. COMPARISON: 02/26/2021 TECHNIQUE: AP, lateral and sunrise views of the right knee FINDINGS: Satisfactory appearance to right knee replacement with near complete resolution of the previous postsurgical changes noted. Lateral view cannot exclude continued effusion. Small stable bony fragments along the posterior aspect of the distal femur best identified on lateral radiograph. IMPRESSION: Resolving postsurgical changes with satisfactory appearance to the prosthesis <Electronically signed by Bruno Perdomo > 03/12/21 [id number]
== END ==
LOC: M SOG 08:42
PROVIDERS: ATTEND Orthopaedic Surgery Adult Reconstructive Orthopaedic Surgery
DX: Z48.89 Encounter for other specified surgical aftercare (principal)

== ENCOUNTER → 2021-05-14 | Outpatient (REF) ==
--- NOTE | 2021-05-14 11:20 | REP ---
INDICATION: ARTHRITIS. COMPARISON: None. TECHNIQUE: AP, lateral, open mouth and swimmer's views of the cervical spine FINDINGS: Advanced focal degenerative changes noted at C5-6 and C6-7 includes endplate sclerosis, osteophytosis and disc space narrowing. Remainder of the examination appears essentially age-appropriate. There is no evidence for acute fracture/compression injury or subluxation. IMPRESSION: Focal advanced degenerative changes at C5-6 and C6-7. <Electronically signed by Bruno Perdomo > 05/14/21 [id number]
--- NOTE | 2021-05-14 11:23 | REP ---
INDICATION: ARTHRITIS COMPARISON: None. TECHNIQUE: AP, lateral, bilateral oblique views left hand. FINDINGS: Osseous structures, joint spaces, and surrounding soft tissues are essentially age-appropriate. There is minimal subchondral sclerosis and subtle joint space narrowing primarily involving the interphalangeal joints and 1st metacarpophalangeal joint. Questionable subluxation at the 1st carpometacarpal joint cannot be excluded and should be correlated with physical examination. No evidence for acute or healed injury. IMPRESSION: Age-related degenerative changes primarily involving the interphalangeal joints. Questionable subluxation at the 1st carpometacarpal joint. <Electronically signed by Bruno Perdomo > 05/14/21 [id number]
== END ==
LOC: M PLAIMG 10:44
PROVIDERS: ATTEND Internal Medicine
DX: M19.042 Primary osteoarthritis, left hand (principal); M50.322 Other cervical disc degeneration at C5-C6 level; M50.323 Other cervical disc degeneration at C6-C7 level; M25.78 Osteophyte, vertebrae

== ENCOUNTER → 2021-06-07 | Outpatient (CLI) | payer MEDICAID, OTHER | LOC: M LABSMTC 10:25 | PROVIDERS: ATTEND Anesthesiology | DX: Z01.812 Encounter for preprocedural laboratory examination (principal); Z20.822 Contact with and (suspected) exposure to COVID-19 ==

== ENCOUNTER → 2021-08-08 | Outpatient (CLI) | payer OTHER | LOC: M SOG 08:29 | PROVIDERS: ATTEND Orthopaedic Surgery Adult Reconstructive Orthopaedic Surgery | DX: Z96.651 Presence of right artificial knee joint (principal) ==

== ENCOUNTER 2021-11-24 14:45 | Emergency (ER) | payer OTHER ==
[~2021-11-24] VITALS: Ht 193 cm; Wt 98.6 kg
[2021-11-24 15:52] LABS: BASO # 0.1 10^3/uL (0.0-0.2); BASO % 1.3 % (0.0-1.0); EOS # 0.1 10^3/uL (0.0-0.5); EOS % 1.1 % (0.0-3.0); HEMATOCRIT 48.7 % (42.0-52.0); HEMOGLOBIN 17.2 g/dl (13.5-17.5); LYMPH # 3.9 10^3/uL (1.5-5.0); LYMPH % 45.3 % (24.0-44.0); MEAN CORPUSCULAR HEMOGLOBIN 31.9 pg (27.0-33.0); MEAN CORPUSCULAR HGB CONC 35.3 g/dl (32.0-36.5); MEAN CORPUSCULAR VOLUME 90.4 fl (80.0-96.0); MONO # 0.8 10^3/uL (0.0-0.8); MONO % 9.4 % (2.0-8.0); NEUTROPHILS # 3.7 10^3/uL (1.5-8.5); NEUTROPHILS % 42.7 % (36.0-66.0); PLATELET COUNT, AUTOMATED 200 10^3/uL (150-450); RED BLOOD COUNT 5.39 10^6/uL (4.30-6.10); WHITE BLOOD COUNT 8.5 10^3/uL (4.0-10.0)
[2021-11-24 16:31] LABS: BLOOD UREA NITROGEN 3 MG/DL (7-18); CALCIUM LEVEL 8.8 MG/DL (8.5-10.1); CARBON DIOXIDE LEVEL 31 MEQ/L (21-32); CHLORIDE LEVEL 100 MEQ/L (98-107); CREATININE FOR GFR 0.82 MG/DL (0.70-1.30); ETHYL ALCOHOL (ETHANOL) 0.358 % (0.000-0.010); GLOMERULAR FILTRATION RATE > 60.0 (>60); GLUCOSE, FASTING 87 MG/DL (70-100); SODIUM LEVEL 139 MEQ/L (136-145)
[2021-11-24] MEDS ORDERED: NICO4GUM41 PO (18:58)
[2021-11-24] MEDS ORDERED: HYDR-3363 PO (18:58)
[2021-11-24] MEDS ORDERED: HOME MED LIST COMPLETE! XX SCH (19:00)
[2021-11-24 20:45] VITALS: BP 155/99
[2021-11-24] MEDS ORDERED: OXAZ30CA2 PO ×2 (20:45→20:49)
[2021-11-24] MEDS ORDERED: OXAZEPAM 15MG CAP PO ONE (20:50)
== END 2021-11-24 21:08 | disposition home or self-care (01) ==
LOC: M ED 14:45
DX: F10.129 Alcohol abuse with intoxication, unspecified (principal); Y90.1 Blood alcohol level of 20-39 mg/100 ml

== ENCOUNTER → 2021-12-18 | Outpatient (CLI) | payer OTHER, MEDICAID ==
[~2021-12-18] MED LIST changes: +NICO4GUM41 PO; +OXAZ30CA2 PO
== END ==
LOC: M ADAMS 09:53
PROVIDERS: ATTEND Orthopaedic Surgery Adult Reconstructive Orthopaedic Surgery
DX: M25.50 Pain in unspecified joint (principal); Z53.9 Procedure and treatment not carried out, unspecified reason

== ENCOUNTER → 2021-12-19 | Outpatient (CLI) | payer OTHER, MEDICAID | LOC: M PLALAB 08:53 | PROVIDERS: ATTEND Orthopaedic Surgery Adult Reconstructive Orthopaedic Surgery | DX: M25.50 Pain in unspecified joint (principal) ==

== ENCOUNTER → 2022-01-28 | Outpatient (CLI) | payer OTHER, MEDICAID ==
[2022-01-28 10:50] LABS: BASO # 0.2 10^3/uL (0.0-0.2); BASO % 1.2 % (0.0-1.0); EOS # 0.5 10^3/uL (0.0-0.5); EOS % 3.8 % (0.0-3.0); HEMATOCRIT 49.7 % (42.0-52.0); HEMOGLOBIN 17.1 g/dl (13.5-17.5); LYMPH # 3.7 10^3/uL (1.5-5.0); LYMPH % 26.7 % (24.0-44.0); MEAN CORPUSCULAR HEMOGLOBIN 32.2 pg (27.0-33.0); MEAN CORPUSCULAR HGB CONC 34.4 g/dl (32.0-36.5); MEAN CORPUSCULAR VOLUME 93.6 fl (80.0-96.0); MONO % 7.5 % (2.0-8.0); NEUTROPHILS # 8.2 10^3/uL (1.5-8.5); NEUTROPHILS % 60.1 % (36.0-66.0); PLATELET COUNT, AUTOMATED 220 10^3/uL (150-450); RED BLOOD COUNT 5.31 10^6/uL (4.30-6.10); WHITE BLOOD COUNT 13.7 10^3/uL (4.0-10.0)
[2022-01-28 11:38] LABS: ERYTHROCYTE SEDIMENTATION RATE 3 mm/hr (0-15)
[2022-01-28 12:51] LABS: ALT/SGPT 48 U/L (12-78); BILIRUBIN,TOTAL 0.4 MG/DL (0.2-1.0); BLOOD UREA NITROGEN 9 MG/DL (7-18); CALCIUM LEVEL 10.3 MG/DL (8.5-10.1); CARBON DIOXIDE LEVEL 28 MEQ/L (21-32); CHLORIDE LEVEL 106 MEQ/L (98-107); CREATININE FOR GFR 0.84 MG/DL (0.70-1.30); GLOMERULAR FILTRATION RATE > 60.0 (>60); GLUCOSE, FASTING 92 MG/DL (70-100); POTASSIUM SERUM 5.2 MEQ/L (3.5-5.1); RHEUMATOID FACTOR QUANT < 10.0 IU/ML (<15.0); SODIUM LEVEL 139 MEQ/L (136-145); TOTAL PROTEIN 7.9 GM/DL (6.4-8.2); URIC ACID 4.8 MG/DL (3.5-7.2)
[2022-01-30 01:06] LABS: ANA (HEP2) Negative (.); CYCLIC CITRULLINATED PEPTIDE 2 units (0-19)
== END ==
LOC: M LAB 10:09
PROVIDERS: ATTEND Orthopaedic Surgery Adult Reconstructive Orthopaedic Surgery
DX: M17.12 Unilateral primary osteoarthritis, left knee (principal); A69.23 Arthritis due to Lyme disease; Z96.651 Presence of right artificial knee joint

== ENCOUNTER → 2022-02-21 | Outpatient (CLI) | payer OTHER, MEDICAID | LOC: M SOG 11:27 | PROVIDERS: ATTEND Orthopaedic Surgery Adult Reconstructive Orthopaedic Surgery | DX: M17.12 Unilateral primary osteoarthritis, left knee (principal); Z96.651 Presence of right artificial knee joint ==

== ENCOUNTER → 2022-05-06 | Outpatient (CLI) | payer OTHER, MEDICAID ==
[~2022-05-06] MED LIST changes: -DOXY-350 PO; +DOXY-444 PO
== END ==
LOC: M ADAMS 12:03
PROVIDERS: ATTEND Family Medicine
DX: M51.36 Other intervertebral disc degeneration, lumbar region (principal)

== ENCOUNTER → 2022-07-16 | Outpatient (REF) | payer OTHER, MEDICAID | LOC: M SFHCDERM 14:21 | PROVIDERS: ATTEND Physician Assistant | DX: B35.3 Tinea pedis (principal) ==

== ENCOUNTER → 2022-09-13 | Outpatient (CLI) | payer OTHER | LOC: M RAD 08:53 | PROVIDERS: ATTEND Orthopaedic Surgery | DX: M47.26 Other spondylosis with radiculopathy, lumbar region (principal) ==

== ENCOUNTER 2022-12-26 06:41 | Day surgery (SDC) | payer OTHER ==
[~2022-12-26] VITALS: Ht 193 cm; Wt 106.5 kg
[~2022-12-26 06:41] MED LIST changes: +CELE100C PO; +FLUC150T9 PO; +NS 1,000 ML IV ONE; +TRIA1OI TOP
[2022-12-26] MEDS ORDERED: LIDOCAINE 2% 100MG/5ML SDV (FOR ANES.) As Ordered ONE (06:52)
[2022-12-26] MEDS ORDERED: propofoL 200 MG/20 ML VIAL As Ordered ONE ×2 (06:52→09:19)
[2022-12-26 08:14] VITALS: TEMP 98.7
[2022-12-26 08:30] VITALS: BP 141/79; O2SAT 98
== END 2022-12-26 08:35 | disposition home or self-care (01) ==
LOC: M OPP 06:41
PROVIDERS: ATTEND Surgery
DX: Z12.11 Encounter for screening for malignant neoplasm of colon (principal); K63.5 Polyp of colon; K64.4 Residual hemorrhoidal skin tags; K57.30 Diverticulosis of large intestine without perforation or abscess without bleeding; F17.200 Nicotine dependence, unspecified, uncomplicated; Z88.1 Allergy status to other antibiotic agents; Z88.2 Allergy status to sulfonamides; Z88.8 Allergy status to other drugs, medicaments and biological substances

== ENCOUNTER → 2023-01-08 | Outpatient (REF) | payer OTHER ==
[~2023-01-08] MED LIST changes: -NS 1,000 ML IV ONE
[2023-01-08 11:05] LABS: BASO # 0.1 10^3/uL (0.0-0.2); BASO % 0.9 % (0.0-1.0); EOS # 0.6 10^3/uL (0.0-0.5); EOS % 5.1 % (0.0-3.0); HEMATOCRIT 45.3 % (42.0-52.0); HEMOGLOBIN 15.9 g/dl (13.5-17.5); MEAN CORPUSCULAR HEMOGLOBIN 33.4 pg (27.0-33.0); MEAN CORPUSCULAR HGB CONC 35.1 g/dl (32.0-36.5); MEAN CORPUSCULAR VOLUME 95.2 fl (80.0-96.0); MONO # 0.9 10^3/uL (0.0-0.8); MONO % 7.9 % (2.0-8.0); NEUTROPHILS # 6.6 10^3/uL (1.5-8.5); NEUTROPHILS % 58.6 % (36.0-66.0); PLATELET COUNT, AUTOMATED 170 10^3/uL (150-450); RED BLOOD COUNT 4.76 10^6/uL (4.30-6.10); WHITE BLOOD COUNT 11.3 10^3/uL (4.0-10.0)
[2023-01-08 11:21] LABS: ERYTHROCYTE SEDIMENTATION RATE 11 mm/hr (0-15)
[2023-01-08 11:27] LABS: C REACTIVE PROTEIN QUANTITATIV < 0.40 MG/DL (<1.0)
[2023-01-08 11:29] LABS: ALBUMIN 3.6 G/DL (3.2-5.2); ALKALINE PHOSPHATASE 71 U/L (46-116); ALT/SGPT 35 U/L (7.0-40); AST/SGOT 19 U/L (<34); BILIRUBIN,TOTAL 0.5 MG/DL (0.3-1.2); BLOOD UREA NITROGEN 8 MG/DL (9-23); CALCIUM LEVEL 8.8 MG/DL (8.5-10.1); CARBON DIOXIDE LEVEL 25 MMOL/L (20-31); CHLORIDE LEVEL 107 MMOL/L (98-107); CREATININE FOR GFR 0.55 MG/DL (0.70-1.30); GLOMERULAR FILTRATION RATE > 60.0 (>60); GLUCOSE, FASTING 125 MG/DL (60-100); POTASSIUM SERUM 4.2 MMOL/L (3.5-5.1); SODIUM LEVEL 139 MMOL/L (136-145); TOTAL PROTEIN 6.8 G/DL (5.7-8.2)
== END ==
LOC: M SFHCPLAZ 10:18
PROVIDERS: ATTEND Internal Medicine Infectious Disease
DX: A69.23 Arthritis due to Lyme disease (principal)

== ENCOUNTER → 2023-02-17 | Outpatient (REF) | payer OTHER | LOC: M LAB REF 10:10 | PROVIDERS: ATTEND Ophthalmology | DX: L82.0 Inflamed seborrheic keratosis (principal) ==

== ENCOUNTER → 2023-06-17 | Outpatient (CLI) | payer OTHER | LOC: M SOG 09:51 | PROVIDERS: ATTEND Physician Assistant | DX: M19.071 Primary osteoarthritis, right ankle and foot (principal) ==

== ENCOUNTER → 2023-07-01 | Outpatient (CLI) | payer MEDICARE, OTHER ==
[2023-07-01 16:31] LABS: ALBUMIN 3.6 G/DL (3.2-5.2); ALKALINE PHOSPHATASE 83 U/L (46-116); ALT/SGPT 41 U/L (7.0-40); AST/SGOT 33 U/L (<34); BILIRUBIN,TOTAL 0.5 MG/DL (0.3-1.2); BLOOD UREA NITROGEN 10 MG/DL (9-23); CALCIUM LEVEL 9.1 MG/DL (8.5-10.1); CARBON DIOXIDE LEVEL 26 MMOL/L (20-31); CHLORIDE LEVEL 106 MMOL/L (98-107); CREATININE FOR GFR 0.61 MG/DL (0.70-1.30); GLOMERULAR FILTRATION RATE > 60.0 (>60); GLUCOSE, FASTING 95 MG/DL (60-100); POTASSIUM SERUM 4.6 MMOL/L (3.5-5.1); SODIUM LEVEL 138 MMOL/L (136-145); TOTAL PROTEIN 7.5 G/DL (5.7-8.2)
== END ==
LOC: M PLALAB 12:00
PROVIDERS: ATTEND Physician Assistant
DX: B35.1 Tinea unguium (principal)

== ENCOUNTER → 2023-07-01 | Outpatient (REF) | payer MEDICARE, OTHER | LOC: M SFHCDERM 08:44 | PROVIDERS: ATTEND Physician Assistant | DX: B35.1 Tinea unguium (principal) ==

== ENCOUNTER → 2023-08-13 | Outpatient (CLI) | payer MEDICARE, MEDICAID ==
[~2023-08-13] MED LIST changes: -CHLO25CA PO; +CHLO25CA10 PO
[2023-08-13 11:39] LABS: ALBUMIN 3.7 G/DL (3.2-5.2); ALKALINE PHOSPHATASE 76 U/L (46-116); ALT/SGPT 40 U/L (7.0-40); AST/SGOT 37 U/L (<34); BILIRUBIN,TOTAL 0.8 MG/DL (0.3-1.2); BLOOD UREA NITROGEN 13 MG/DL (9-23); CARBON DIOXIDE LEVEL 27 MMOL/L (20-31); CHLORIDE LEVEL 110 MMOL/L (98-107); CREATININE FOR GFR 0.66 MG/DL (0.70-1.30); GLOMERULAR FILTRATION RATE > 60.0 (>60); GLUCOSE, FASTING 96 MG/DL (60-100); POTASSIUM SERUM 4.1 MMOL/L (3.5-5.1); SODIUM LEVEL 140 MMOL/L (136-145); TOTAL PROTEIN 7.2 G/DL (5.7-8.2)
== END ==
LOC: M PLALAB 08:32
PROVIDERS: ATTEND Physician Assistant
DX: Z79.899 Other long term (current) drug therapy (principal)

== ENCOUNTER → 2023-09-23 | Outpatient (REF) | payer MEDICARE, OTHER | LOC: M SFHCDERM 08:13 | PROVIDERS: ATTEND Physician Assistant | DX: B35.1 Tinea unguium (principal) ==

== ENCOUNTER → 2023-10-15 | Outpatient (CLI) | payer MEDICARE, OTHER ==
[2023-10-15 12:26] LABS: ALBUMIN 3.4 G/DL (3.2-5.2); ALKALINE PHOSPHATASE 82 U/L (46-116); ALT/SGPT 40 U/L (7.0-40); AST/SGOT 37 U/L (<34); BILIRUBIN,TOTAL 0.3 MG/DL (0.3-1.2); BLOOD UREA NITROGEN 14 MG/DL (9-23); CALCIUM LEVEL 8.6 MG/DL (8.5-10.1); CARBON DIOXIDE LEVEL 24 MMOL/L (20-31); CHLORIDE LEVEL 109 MMOL/L (98-107); CREATININE FOR GFR 0.59 MG/DL (0.70-1.30); GLOMERULAR FILTRATION RATE > 60.0 (>56); GLUCOSE, FASTING 131 MG/DL (60-100); POTASSIUM SERUM 4.3 MMOL/L (3.5-5.1); SODIUM LEVEL 139 MMOL/L (136-145); TOTAL PROTEIN 6.9 G/DL (5.7-8.2)
== END ==
LOC: M PLALAB 08:15
PROVIDERS: ATTEND Family Medicine
DX: B35.1 Tinea unguium (principal)

== ENCOUNTER → 2024-06-02 | Outpatient (CLI) | payer MEDICARE, OTHER, MEDICAID ==
[~2024-06-02] MED LIST changes: +DOXY-440 PO; -DOXY-444 PO
== END ==
LOC: M SOG 13:27
PROVIDERS: ATTEND Orthopaedic Surgery
DX: M54.50 Low back pain, unspecified (principal); M47.816 Spondylosis without myelopathy or radiculopathy, lumbar region

== ENCOUNTER → 2024-07-05 | Outpatient (REF) | payer MEDICARE, OTHER | LOC: M SFHCDERM 17:32 | PROVIDERS: ATTEND Physician Assistant | DX: C44.1221 Squamous cell carcinoma of skin of right upper eyelid, including canthus (principal) ==

== ENCOUNTER → 2025-02-28 | Outpatient (CLI) | payer MEDICARE, MEDICAID ==
[2025-02-28 15:03] LABS: ALT/SGPT 62 U/L (7.0-40); AST/SGOT 46 U/L (<34); CALCIUM LEVEL 9.8 MG/DL (8.5-10.1); CARBON DIOXIDE LEVEL 26 MMOL/L (20-31); CHLORIDE LEVEL 107 MMOL/L (98-107); CHOLESTEROL LEVEL 190 MG/DL (<200); CHOLESTEROL RISK RATIO 6.20 (<5); CREATININE FOR GFR 0.65 MG/DL (0.70-1.30); GLOMERULAR FILTRATION RATE > 90.0 (>56); LDL CHOLESTEROL 113.2 MG/DL (<100); NON-HDL-C 159.4 MG/DL; POTASSIUM SERUM 4.3 MMOL/L (3.5-5.1); SODIUM LEVEL 142 MMOL/L (136-145); TRIGLYCERIDES LEVEL 231 MG/DL (<150)
[2025-02-28 15:07] LABS: FREE T4 0.90 NG/DL (0.89-1.76)
[2025-02-28 16:53] LABS: ESTIMATED AVERAGE GLUCOSE 114.0 MG/DL (60-110)
== END ==
LOC: M PLALAB 09:21
PROVIDERS: ATTEND Family Medicine
DX: E66.01 Morbid (severe) obesity due to excess calories (principal); Z79.899 Other long term (current) drug therapy